=== PATIENT | female | born 1995 | race Asian ===

== ENCOUNTER 2017-10-09 18:18 | Emergency (ER) | payer OTHER | END 2017-10-09 18:45 | disposition home or self-care (01) | LOC: FTE 18:18 → E/R 18:45 | DX: N61.0 Mastitis without abscess (principal) | CPT/HCPCS: 99284; Z7502 ==

== ENCOUNTER 2017-10-19 07:18 | Emergency (ER) | payer OTHER | END 2017-10-19 08:03 | disposition home or self-care (01) | LOC: FTE 08:03 | DX: L50.9 Urticaria, unspecified (principal) | CPT/HCPCS: 99284; Z7502 ==